=== PATIENT | female | born 1960 | race Two or more races ===

== ENCOUNTER 2023-05-01 13:35 | Emergency (ER) | payer OTHER ==
[~2023-05-01] VITALS: Ht 162.6 cm; Wt 65.8 kg
[~2023-05-01 13:35] MED LIST: HYOSCYAMINE0.15 MG; LOPERAMIDE2 M1; NEXIUM20 MG/PACK; PANADOL MAXIMU500 MG; PANTOPRAZOLE SO20 MG
[2023-05-01] MEDS ORDERED: ZESTRIL10 M1 PO (14:10)
[2023-05-01 17:14] LABS: HEMATOCRIT 41.2 % (36.0-45.00); HEMOGLOBIN 13.6 g/dL (12.0-15.00); MEAN CELL VOLUME 87.2 fL (80.00-100.00); MEAN CORPUSCULAR HEMOGLOBIN 28.9 pg (27.00-32.0); MEAN CORPUSCULAR HGB CONC 33.1 g/dl (32.0-36.0); PLATELET COUNT 195 K/uL (150-450); RED BLOOD COUNT 4.72 M/uL (4.00-6.00); RED CELL DISTRIBUTION WIDTH 14.2 % (11.5-14.5)
[2023-05-01 17:14] LABS: URINE APPEARANCE Turbid; URINE BILIRRUBIN Negative (NEGATIVE); URINE BLOOD Large; URINE COLOR Yellow; URINE GLUCOSE Negative (NEGATIVE); URINE LEUKOCYTE Large; URINE NITRATE Positive
[2023-05-01 17:18] LABS: URINE BACTERIA 9662.9 uL (0.0-1933); URINE EPITHELIAL CELLS 66.3 uL (0.0-38.8); URINE RBC 185.2 uL (0.0-20.8)
[2023-05-01 17:36] LABS: CALCIUM 8.7 mg/dL (8.5-10.1); CREATININE SERUM 1.12 mg/dL (0.55-1.02); GFR 49.13; POTASSIUM 3.03 mEq/L (3.5-5.1)
[2023-05-01 17:50] LABS: URINE PROTEIN 100 (NEGATIVE); URINE WBC > 5548.3 uL (0.0-23.2)
== END 2023-05-01 18:17 | disposition home or self-care (01) ==
LOC: ER 13:35
PROVIDERS: General Practice
DX: R50.9 Fever, unspecified (principal); R30.0 Dysuria; I10 Essential (primary) hypertension; N39.0 Urinary tract infection, site not specified; Z20.822 Contact with and (suspected) exposure to COVID-19

== ENCOUNTER 2023-08-03 06:57 | Emergency (ER) | payer OTHER ==
[~2023-08-03] VITALS: Ht 162.6 cm; Wt 73.5 kg
[~2023-08-03 06:57] MED LIST changes: +ZESTRIL10 M1 PO
[2023-08-03 08:09] LABS: HEMATOCRIT 46.9 % (36.0-45.00); HEMOGLOBIN 15.7 g/dL (12.0-15.00); MEAN CELL VOLUME 86.2 fL (80.00-100.00); MEAN CORPUSCULAR HEMOGLOBIN 28.8 pg (27.00-32.0); MEAN CORPUSCULAR HGB CONC 33.5 g/dl (32.0-36.0); PLATELET COUNT 260 K/uL (150-450); RED BLOOD COUNT 5.45 M/uL (4.00-6.00); RED CELL DISTRIBUTION WIDTH 15.2 % (11.5-14.5)
[2023-08-03 09:25] LABS: CALCIUM 9.2 mg/dL (8.5-10.1); CREATININE SERUM 0.92 mg/dL (0.55-1.02); GFR 61.65; POTASSIUM 3.92 mEq/L (3.5-5.1)
== END 2023-08-03 13:21 | disposition home or self-care (01) ==
LOC: ER 06:58
PROVIDERS: General Practice
DX: K52.89 Other specified noninfective gastroenteritis and colitis (principal); I10 Essential (primary) hypertension

== ENCOUNTER 2025-04-12 05:15 | Emergency (ER) | payer OTHER ==
[~2025-04-12] VITALS: Ht 165.1 cm; Wt 78.9 kg
[2025-04-12] MEDS ORDERED: HYOSCYAMINE SULFATE 0.125 MG TAB.SUBL SL STA (06:07)
[2025-04-12] MEDS ORDERED: FAMOTIDINE/PF 20 MG/2 ML VIAL IV PUSH STA (06:09)
[2025-04-12] MEDS ORDERED: LACTOBACILLUS ACIDOPHILUS 1 CAP CAP PO STA (06:09)
[2025-04-12] MEDS ORDERED: LACTOBACILLUS ACIDOPHILUS 1 CAP CAP PO ONE (06:11)
[2025-04-12] MEDS ORDERED: HYOSCYAMINE SULFATE 0.125 MG TAB.SUBL ONE (06:11)
[2025-04-12] MEDS ORDERED: ONDANSETRON HCL 2 MG/ML VIAL ONE (06:11)
[2025-04-12] MEDS ORDERED: MORPHINE SULFATE 4 MG/ML CARTRIDGE IV STA (06:11)
[2025-04-12] MEDS ORDERED: ONDANSETRON HCL 2 MG/ML VIAL IV STA (06:11)
[2025-04-12] MEDS ORDERED: FAMOTIDINE/PF 20 MG/2 ML VIAL ONE (06:11)
[2025-04-12] MEDS ORDERED: 0.9 % SODIUM CHLORIDE 1,000 ML IV ONE (06:15)
[2025-04-12] MEDS ORDERED: LISINOPRIL10 MG PO (07:07)
[2025-04-12] MEDS ORDERED: ATORVASTATIN CA20 MG PO (07:07)
[2025-04-12] MEDS ORDERED: LOSARTAN-HCTZ1 EAC1 PO (07:07)
[2025-04-12 07:20] LABS: ALT/SGPT 24.0 U/L (12-78); AST/SGOT 23.0 U/L (15-37); BILIRUBIN TOTAL 0.64 mg/dL (0.3-1.2); BUN CREA RATIO 17.0 (7.0-25.0); CREATININE SERUM 1.14 mg/dL (0.55-1.02); GFR 47.83; GLOBULINA 3.5 G/DL (2.4-3.5); GLUCOSE FASTING 110.0 mg/dL (65-100); OSMOLALITY SERUM 286.0 MOSM/KG (275-295)
[2025-04-12 07:24] LABS: BASO % 0.5 % (0.1-1.2); EOS # 0.00 (0.04-0.54); EOS % 0.0 % (0.7-7.0); LYMPH # 0.63 (1.18-3.74); LYMPH % 9.9 % (19.3-53.1); MEAN PLATELET VOLUME 10.90 fl (9.4-12.4); MONO # 0.77 (0.24-0.82); NEUT # 4.76 (1.56-6.13); NEUT % 75.1 % (34.0-71.1); RED CELL DISTRIBUTION WIDTH 14.3 % (11.6-14.4)
[2025-04-12 07:33] LABS: MONO % 12.1 % (4.7-12.5)
[2025-04-12 09:58] LABS: URINE APPEARANCE Clear; URINE BILIRRUBIN Negative (NEGATIVE); URINE BLOOD Negative; URINE COLOR Yellow; URINE GLUCOSE Negative (NEGATIVE); URINE KETONE Negative (NEGATIVE); URINE LEUKOCYTE Negative; URINE NITRATE Negative; URINE PROTEIN Negative (NEGATIVE); URINE UROBILINOGEN 1.0 E.U./dl
[2025-04-12 10:02] LABS: URINE BACTERIA 208.7 uL (0.0-1933); URINE EPITHELIAL CELLS 4.4 uL (0.0-38.8); URINE RBC 10.2 uL (0.0-20.8); URINE WBC 4.9 uL (0.0-23.2)
[2025-04-12 10:07] LABS: URINE CAST 0.00 uL (0.0-1.40)
[2025-04-12] MEDS ORDERED: ACETAMINOPHEN 500 MG GEL..CAP PO ONE ×2 (10:09→10:45)
[2025-04-12] MEDS ORDERED: CIPRO500 MG PO (13:06)
[2025-04-12] MEDS ORDERED: INTESTINEX680 M1 PO (13:06)
[2025-04-12] MEDS ORDERED: METRONIDAZOLE500 MG PO (13:06)
[2025-04-12] MEDS ORDERED: LEVSIN0.125 MG PO (13:06)
[2025-04-12] MEDS ORDERED: METRONIDAZOLE/SODIUM CHLORIDE 500 MG/100 ML PIGGYBACK IV ONE ×2 (13:15→13:48)
[2025-04-12] MEDS ORDERED: CIPROFLOXACIN IN 5 % DEXTROSE 200 ML IV ONE (13:15)
[2025-04-12] MEDS ORDERED: CIPROFLOXACIN IN 5 % DEXTROSE 400 MG/200 ML PIGGYBAG IV ONE (13:48)
== END 2025-04-12 17:10 | disposition home or self-care (01) ==
LOC: ER 05:15
PROVIDERS: General Practice
DX: K52.9 Noninfective gastroenteritis and colitis, unspecified (principal); R11.10 Vomiting, unspecified; R10.13 Epigastric pain; R10.9 Unspecified abdominal pain; I10 Essential (primary) hypertension
CPT/HCPCS: 36415; 74176; 96365; 96366; 99284; J0744; J2405; J3475; J3490 ×2; J7030

== ENCOUNTER 2025-04-13 19:24 | Inpatient (IN) | payer OTHER ==
[~2025-04-13] VITALS: Ht 165.1 cm; Wt 78.9 kg
[~2025-04-13 19:24] MED LIST changes: +ATORVASTATIN CA20 MG PO; +CIPRO500 MG PO; +INTESTINEX680 M1 PO; +LEVSIN0.125 MG PO; +LISINOPRIL10 MG PO; +LOSARTAN-HCTZ1 EAC1 PO; +METRONIDAZOLE500 MG PO
--- NOTE | 2025-04-13 19:34 | NUR ---
SE RECIBE PACIENTE ALERTA Y ORIENTADA X 3, LLEGA EN AMBULANCIACON CANALIZACION PATENTE EN MANO DERECHA ANGIO #20, AREA SHAUNA DE EDEMA Y/O ERITEMA. REFIERE DOLOR ABDOMINAL Y NAUSEAS DESDE JARET.
[2025-04-13] MEDS ORDERED: FAMOTIDINE/PF 20 MG/2 ML VIAL ONE (20:24)
[2025-04-13] MEDS ORDERED: ONDANSETRON HCL 2 MG/ML VIAL ONE (20:24)
[2025-04-13] MEDS ORDERED: PIPERACILLIN/TAZOBACTAM SODIUM 3.375 GM VIAL IV ONE ×2 (20:24→20:30)
[2025-04-13 20:29] LABS: BASO % 0.5 % (0.1-1.2); EOS # 0.04 (0.04-0.54); EOS % 1.0 % (0.7-7.0); LYMPH # 0.74 (1.18-3.74); LYMPH % 17.8 % (19.3-53.1); MEAN PLATELET VOLUME 10.00 fl (9.4-12.4); MONO # 0.60 (0.24-0.82); NEUT # 2.61 (1.56-6.13); RED CELL DISTRIBUTION WIDTH 14.6 % (11.6-14.4)
[2025-04-13] MEDS ORDERED: ONDANSETRON HCL 2 MG/ML VIAL IV ONE (20:30)
[2025-04-13] MEDS ORDERED: MORPHINE SULFATE 2 MG/ML SYRINGE IV ONE (20:30)
[2025-04-13 20:42] LABS: MONO % 14.5 % (4.7-12.5)
--- NOTE | 2025-04-13 20:43 | NUR ---
NAY FAUST EDUCA A PACIENTE SOBRE TX MEDICO, ESTA REFIERE ENTENDER. SE EXTRAEN MUESTRAS DE LABORATORIO Y SE ADMINISTRAN MEDICAMENTOS MT ORDEN MEDICA. SE HACE ENTREGA DE ENVASE DE FECAL.
[2025-04-13 20:54] LABS: BAND MAN 4.0 %; EOSINOPHIL MAN 1.0 %; LYMPHOCYTE MAN 17.0 %; MONOCYTE MAN 10.0 %; NEUT % 62.8 % (34.0-71.1); NEUTROPHILS MAN 66.0 %
[2025-04-13 20:56] LABS: INR 1.1
[2025-04-13 21:01] LABS: ALT/SGPT 29.0 U/L (12-78); AST/SGOT 33.0 U/L (15-37); BILIRUBIN TOTAL 1.05 mg/dL (0.3-1.2); BUN CREA RATIO 15.0 (7.0-25.0); CREATININE SERUM 1.35 mg/dL (0.55-1.02); GFR 39.36; GLOBULINA 3.6 G/DL (2.4-3.5); GLUCOSE FASTING 88.0 mg/dL (65-100); OSMOLALITY SERUM 283.0 MOSM/KG (275-295)
[2025-04-13] MEDS ORDERED: POTASSIUM CHLORIDE 20MEQ/100ML H2O PB IV ONE ×2 (22:15→22:18)
[2025-04-13] MEDS ORDERED: CIPROFLOXACIN IN 5 % DEXTROSE 200 ML IV SCH (22:50)
[2025-04-13] MEDS ORDERED: POTASSIUM CHLORIDE 20MEQ/100ML H2O PB IV SCH (22:54)
[2025-04-13] MEDS ORDERED: PANTOPRAZOLE SODIUM 40 MG in 0.9 % SODIUM CHLORIDE 8 ML IV PUSH SCH (22:59)
[2025-04-13] MEDS ORDERED: 0.9 % SODIUM CHLORIDE 1,000 ML IV SCH (23:00)
[2025-04-13] MEDS ORDERED: ONDANSETRON HCL 4 MG in 0.9 % SODIUM CHLORIDE 50 ML IV PRN (23:00)
[2025-04-13] MEDS ORDERED: MORPHINE SULFATE 2 MG/ML SYRINGE IV PRN (23:00)
[2025-04-13] MEDS ORDERED: ATORVASTATIN CALCIUM 20 MG TABLET PO SCH (23:02)
[2025-04-13] MEDS ORDERED: LOSARTAN/HYDROCHLOROTHIAZIDE 1 UDTAB TABLET PO SCH (23:02)
[2025-04-14 08:00] VITALS: BP 109/70; O2SAT 95
[2025-04-14] MEDS ORDERED: MAGNESIUM SULFATE IN WATER 50 ML IV ONE (10:00)
[2025-04-14 11:45] LABS: BUN CREA RATIO 12.0 (7.0-25.0); CREATININE SERUM 1.21 mg/dL (0.55-1.02); GFR 44.66; GLUCOSE FASTING 81.0 mg/dL (65-100); OSMOLALITY SERUM 283.0 MOSM/KG (275-295)
[2025-04-14] MEDS ORDERED: FAMOTIDINE/PF 20 MG/2 ML VIAL IV SCH (11:51)
[2025-04-14] MEDS ORDERED: POTASSIUM CHLORIDE 10 MEQ CAPSULE PO SCH ×2 (14:00→17:00)
[2025-04-14] MEDS ORDERED: POTASSIUM CHLORIDE 10 MEQ CAPSULE PO STA ×2 (14:01→14:02)
[2025-04-14 15:36] VITALS: BP 117/75; O2SAT 96
[2025-04-15 02:42] VITALS: BP 117/66; O2SAT 98
[2025-04-15 07:58] LABS: BASO % 0.6 % (0.1-1.2); EOS # 0.05 (0.04-0.54); EOS % 1.5 % (0.7-7.0); LYMPH # 1.02 (1.18-3.74); LYMPH % 30.9 % (19.3-53.1); MEAN PLATELET VOLUME 10.80 fl (9.4-12.4); MONO # 0.61 (0.24-0.82); NEUT # 1.45 (1.56-6.13); NEUT % 44.0 % (34.0-71.1); RED CELL DISTRIBUTION WIDTH 14.8 % (11.6-14.4)
[2025-04-15 08:23] LABS: ALT/SGPT 37.0 U/L (12-78); AST/SGOT 55.0 U/L (15-37); BILIRUBIN TOTAL 1.11 mg/dL (0.3-1.2); BUN CREA RATIO 11.0 (7.0-25.0); CREATININE SERUM 1.01 mg/dL (0.55-1.02); GFR 55.01; GLOBULINA 3.4 G/DL (2.4-3.5); GLUCOSE FASTING 72.0 mg/dL (65-100); OSMOLALITY SERUM 275.0 MOSM/KG (275-295)
[2025-04-15 08:38] VITALS: BP 116/77; O2SAT 95
[2025-04-15] MEDS ORDERED: LOSARTAN POTASSIUM 100 MG TABLET PO SCH (09:00)
[2025-04-15 09:01] LABS: BAND MAN 5.0 %; LYMPHOCYTE MAN 42.0 %; METAMYELOCYTE 1.0 %; MONO % 18.5 % (4.7-12.5); MONOCYTE MAN 6.0 %; NEUTROPHILS MAN 42.0 %
[2025-04-15 16:00] VITALS: BP 137/76; O2SAT 99
[2025-04-16] VITALS: BP 110/63; O2SAT 95
[2025-04-16 09:55] VITALS: BP 103/67; O2SAT 97
[2025-04-17 21:11] LABS: GIARDIA LAMBLIA EIA Negative (Negative)
[2025-04-20 15:06] LABS: campy Final report (.)
== END 2025-04-16 16:25 | disposition home or self-care (01) | DRG 392 ==
LOC: ER 19:24 → SEC-K 22:50 → SURG 04-14 00:59
PROVIDERS: General Practice; Internal Medicine Infectious Disease; Preventive Medicine Public Health & General Preventive Medicine; ADMIT Internal Medicine; ATTEND Internal Medicine
DX: K52.9 Noninfective gastroenteritis and colitis, unspecified (principal); E87.6 Hypokalemia; I10 Essential (primary) hypertension